=== PATIENT | male | born 1955 | race Caucasian/White ===

== ENCOUNTER → 2016-12-17 | Outpatient (CLI) | payer OTHER ==
--- NOTE | 2016-12-17 13:59 | RAD ---
PROCEDURE MRI study of the right shoulder without contrast HISTORY Increasing right shoulder pain since injury in July 2016 with limited range of motion. History of prior rotator cuff repair surgery. TECHNIQUE Noncontrast MRI sequences of the right shoulder were performed in all 3 planes. COMPARISON No previous MRI available. Radiographic series dated December 10, 2016. FINDINGS On the radiographic study, a rectangular radiodensity is seen within the lateral aspect of the acromial humeral space. This is not identified on the MRI study. There is increased signal within the supraspinatus tendon and infraspinatus tendon consistent with tendinosis. No complete rotator cuff tear is seen. The subscapularis tendon is intact. The tendon of the long head of the biceps is intact. No subdeltoid or subacromial bursitis is seen. The AC joint is widened consistent with a previous acromioclaviculoplasty. There is lateral downsloping of the acromial process. Type 3 acromial process is seen. These findings may impinge the acromial humeral space. There are mild chronic erosive changes of the lateral aspect the humeral head secondary to chronic acromial humeral space impingement. No other marrow infiltrative process or bone contusion or fracture is seen. There is moderate degenerative spurring and chondromalacia of the glenohumeral joint. No significant glenohumeral joint effusion is seen. No loose body is evident. There is degenerative increased signal within the superior aspect of the glenoid labrum. Otherwise no tear of the glenoid labrum is seen. No paralabral ganglion cyst or spinoglenoid notch ganglion cyst is seen. IMPRESSION Tendinosis of the rotator cuff. No complete rotator cuff tear is seen. Moderate primary degenerative osteoarthritis of the glenohumeral joint. Electronically signed by: Jason Fernandes MD (Dec 17, 2016 13:58:44)
== END | disposition home or self-care (01) ==
LOC: MRI 12:10
PROVIDERS: ATTEND Orthopaedic Surgery
DX: M19.011 Primary osteoarthritis, right shoulder (principal); G89.29 Other chronic pain
CPT/HCPCS: 73221